=== PATIENT | female | born 1955 | race Caucasian/White ===

== ENCOUNTER 2018-01-22 10:21 | Emergency (ER) | payer OTHER ==
[2018-01-22] MEDS ORDERED: NS 1,000 ML IV ONE (11:11)
[2018-01-22 11:18] LABS: PLATELET COUNT 329 10^3/uL (150-400)
[2018-01-22] MEDS ORDERED: IOPAMIDOL (ISOVUE-300) 100 ML BTL ONE (11:29)
[2018-01-22] MEDS ORDERED: metroNIDAZOLE 500 MG TAB PO ONE (12:25)
--- NOTE | 2018-01-22 12:29 | EDPHY ---
H & P Time Seen by Provider: 01/22/18 10:37 HPI/ROS: CHIEF COMPLAINT: Weakness, abdominal pain HISTORY OF PRESENT ILLNESS: Patient presents with complaints of feeling weak and lower abdominal pain. She states that since about January 05 she has been having intermittent abdominal pain. She states that started before mother's Day with abdominal cramping and increased stool output. The next day she felt no energy in general malaise. Pain was intermittent, somewhat better for about a week but then got more severe on TuesdayJanuary 13. She described it then as shooting pain going from her rectal area up into the abdomen. Worse with some movement. Some nausea but no vomiting. No diarrhea. She went to see her primary care physician and was diagnosed with diverticulitis. She was started on ciprofloxacin only. She returns today because she felt weak and her primary care doctor had told her to get rechecked if things got worse. She states she just feels tired. She has been on a liquid only diet. Her abdominal pain remains but isn't significantly worse. REVIEW OF SYSTEMS: Constitutional: No fever, no chills. Eyes: No discharge. ENT: No sore throat. Cardiovascular: No chest pain, no palpitations. Respiratory: No cough, no shortness of breath. Gastrointestinal: Per HPI Genitourinary: No dysuria. Musculoskeletal: No back pain. Skin: No rashes. Neurological: No headache. General Appearance: Alert, no distress. Eyes: Pupils equal and round no pallor or injection. ENT, Mouth: Mucous membranes moist. Respiratory: There are no retractions, lungs are clear to auscultation. Cardiovascular: Regular rate and rhythm. Gastrointestinal: Abdomen is soft, tenderness to palpation with guarding to the lower mid left abdomen. Normal bowel sounds. Neurological: Awake and alert, no focal deficits. Skin: Warm and dry, no rashes. Musculoskeletal: Neck is supple nontender. Extremities are symmetrical, full range of motion, no edema. Psychiatric: Patient is oriented X 3, there is no agitation. Medical/surgical history: Colon polyps on multiple colonoscopies. Breast cancer resulting in right mastectomy with reconstructive surgery. Hysterectomy , oral surgeries, rosacea. Social history: Nonsmoker. Smoking Status: Never smoked Constitutional: Initial Vital Signs Temperature (C) 36.6 C 01/22/18 10:31 Heart Rate 85 01/22/18 10:31 Respiratory Rate 18 01/22/18 10:31 Blood Pressure 166/82 H 01/22/18 10:31 O2 Sat (%) 97 01/22/18 10:31 O2 Delivery Mode Room Air Allergies/Adverse Reactions: barium iodide Allergy (Verified 01/04/16 15:28) nitrofurantoin macrocrystalline [From Macrodantin] Allergy (Verified 01/04/16 15 :28) sodium penathol Allergy (Uncoded 01/04/16 15:35) Home Medications: Medication Instructions Recorded Fosamax 70 MG (RX) 01/04/16 Lexapro 01/04/16 Oracea 01/04/16 Vitamin D 01/04/16 metroNIDAZOLE [Flagyl 500 mg (*)] 500 mg PO BID #20 tab 01/22/18 Medical Decision Making - Diagnostics Imaging Results: Imaging Impressions Abdomen CT 01/22/18 11:12 Impression: Acute sigmoid diverticulitis with a 2.5 cm intramural abscess within the wall of the midsigmoid colon. Adjacent inflammatory changes. Imaging: Discussed imaging studies w/ call center agent Radiologist ED Course/Re-evaluation: Re-evaluation after results of CT scan. Discussed findings including non drainable abscess. Reviewed return precautions in detail including if she develops more pain or fever to return to the emergency department. Differential Diagnosis: Differential diagnosis includes but is not limited to diverticulitis, intra- abdominal abscess, urinary tract infection, acute appendicitis. After evaluation including CT scan of the abdomen and pelvis with IV contrast patient confirmed to have diverticulitis with small intramural abscess in the mid sigmoid colon. No signs of peritonitis, fever, tachycardia, significant dehydration. Flagyl added to the antibiotic course started by her primary care physician. Encouraged to rest and finish all antibiotics medications as written. Also advised to follow up with primary care physician. Patient will have to reschedule her repeat colonoscopy but deferred timing to the fittings tightener Dr. Steward. - Data Points Laboratory Results: Laboratory Results 01/22/18 10:57 01/22/18 10:57 01/22/18 01/22/18 01/22/18 10:57 10:57 10:57 WBC 8.18 10^3/uL 10^3/uL (3.80-9.50) RBC 4.89 10^6/uL 10^6/uL (4.18-5.33) Hgb 14.9 g/dL g/dL (12.6-16.3) Hct 43.5 % % (38.0-47.0) MCV 89.0 fL fL (81.5-99.8) MCH 30.5 pg pg (27.9-34.1) MCHC 34.3 g/dL g/dL (32.4-36.7) RDW 13.0 % % (11.5-15.2) Plt Count 329 10^3/uL 10^3/uL (150-400) MPV 8.9 fL fL (8.7-11.7) Neut % (Auto) 85.8 % H % (39.3-74.2) Lymph % (Auto) 8.4 % L % (15.0-45.0) [place] % (Auto) 4.6 % % (4.5-13.0) Eos % (Auto) 0.6 % % (0.6-7.6) Baso % (Auto) 0.4 % % (0.3-1.7) Nucleat RBC Rel Count 0.0 % % (0.0-0.2) Absolute Neuts (auto) 7.01 10^3/uL H 10^3/uL (1.70-6.50) Absolute Lymphs (auto) 0.69 10^3/uL L 10^3/uL (1.00-3.00) Absolute Monos (auto) 0.38 10^3/uL 10^3/uL (0.30-0.80) Absolute Eos (auto) 0.05 10^3/uL 10^3/uL (0.03-0.40) Absolute Basos (auto) 0.03 10^3/uL 10^3/uL (0.02-0.10) Absolute Nucleated RBC 0.00 10^3/uL 10^3/uL (0-0.01) Immature Gran % 0.2 % % (0.0-1.1) Immature Gran # 0.02 10^3/uL 10^3/uL (0.00-0.10) Sodium 138 mEq/L mEq/L (135-145) Potassium 4.2 mEq/L mEq/L (3.3-5.0) Chloride 99 mEq/L mEq/L (97-110) Carbon Dioxide 24 mEq/l mEq/l (22-31) Anion Gap 15 mEq/L mEq/L (8-16) BUN 8 mg/dL mg/dL (7-23) Creatinine 0.7 mg/dL mg/dL (0.6-1.0) Estimated GFR > 60 Glucose 77 mg/dL mg/dL (70-100) Calcium 10.0 mg/dL mg/dL (8.5-10.4) Urine Color YELLOW Urine Appearance CLEAR Urine pH 5.5 (5.0-7.5) Ur Specific [place] 1.030 (1.002-1.030) Urine Protein NEGATIVE (NEGATIVE) Urine Ketones 3+ H (NEGATIVE) Urine Blood NEGATIVE (NEGATIVE) Urine Nitrate NEGATIVE (NEGATIVE) Urine Bilirubin NEGATIVE (NEGATIVE) Urine Urobilinogen 0.2 EU EU (0.2-1.0) Ur Leukocyte Esterase NEGATIVE (NEGATIVE) Urine Glucose NEGATIVE (NEGATIVE) Medications Given: Discontinued Medications Sodium Chloride (Ns) 1,000 mls @ 0 mls/hr IV EDNOW ONE; Wide Open PRN Reason: Protocol Stop: 01/22/18 11:12 Last Admin: 01/22/18 11:31 Dose: 1,000 mls Metronidazole (Flagyl) 500 mg PO EDNOW ONE PRN Reason: Protocol Stop: 01/22/18 12:26 Last Admin: 01/22/18 12:35 Dose: 500 mg Departure - Departure Disposition: Home, Routine, Self-Care Clinical Impression: Diverticulitis large intestine Qualifiers: Diverticulitis bleeding: without bleeding Diverticulitis complication: with abscess Qualified Code(s): K57.20 - Diverticulitis of large intestine with perforation and abscess without bleeding Condition: Fair Instructions: Diverticulitis (ED), Diverticulitis Diet (ED) Additional Instructions: You can resume eating solid foods as discussed. Continue all antibiotics until they are completely gone. Return to this emergency department if you develop fevers, increasing abdominal pain or other concerning new symptoms. Referrals: Radha Myers [Primary Care Provider] - As per Instructions Prescriptions: metroNIDAZOLE [Flagyl 500 mg (*)] 500 mg PO BID #20 tab
[2018-01-22 13:12] VITALS: BP 137/66
== END 2018-01-22 13:07 | disposition home or self-care (01) ==
LOC: CED 10:21
DX: K57.20 Diverticulitis of large intestine with perforation and abscess without bleeding (principal); E86.9 Volume depletion, unspecified; Z85.3 Personal history of malignant neoplasm of breast; Z90.710 Acquired absence of both cervix and uterus
CPT/HCPCS: 74177-PO; 80048-PO; 81003-PO; 85025-PO; Q9967